=== PATIENT | female | born 1955 | race African-American/Black ===

== ENCOUNTER → 2017-10-21 | Outpatient (CLI) | payer OTHER, MEDICARE ==
[~2017-10-21] MED LIST: ALLOPURINOL 10100 M1 PO; ASPIR 8181 M1 PO; ASPIRIN325; ATORVASTATIN CA40 MG PO; AUGMENTIN 875875 MG PO; BRILINTA90 MG PO; CARISOPRODOL 3350 MG; CARISOPRODOL 3350 MG PO; COLCHICINE0.6 MG PO; COREG3.125 MG PO; DELSYM30 MG/5 M1 PO; FLEXERIL PO; HYDROCHLOROTHIA25 M2 PO; HYDROCODONE-AP1 EAC6 PO; IMDUR 30 MG TAB30 M1; IMDUR 30 MG TAB30 M1 PO; INDOCIN25 MG/5 ML PO; KLOR-CON 1010 MEQ PO; LEVOTHYROXIN0.125 M1 PO; LIDODERM 5%1 PATC1 TRANSDERM; LISINOPRIL2.5 MG PO; LISINOPRIL40 MG; LISINOPRIL40 MG PO; LOPRESSOR25 PO; LORTAB; LOVASTAT20; MEDROL4 MG PO; NEURONTIN 300300 M1 PO; NITROSTAT0.4 MG SUBLING; NORCO 5-325 TA1 EAC1 PO; NORCO 5-325 TA1 EACH PO; NORVASC5 MG PO; ONDANSETRON HCL4 M2 PO; OXYCODONE HCL15 MG PO; OXYCONTIN10 M1; OXYCONTIN10 M1 PO; PERCOCET 5-3251 EACH PO; PERCOCET 7.5-31 EACH PO; PERCOCET PO; PLAVIX 75 MG TA75 M1 PO; PLAVIX 75 MG TA75 MG; PLAVIX 75 MG TA75 MG PO; PROMETHAZINE D480 ML PO; PROTONIX40 M1 PO; PROTONIX40 M2 PO; PROTONIX40 M4 PO; RANEXA 500 MG500 M1; ROBAXIN 750 MG750 M1 PO; ROBAXIN500 MG PO; ROXICODONE30 MG PO; SYNTHROID25 MCG; TESSALON PERLE100 MG PO; TOPROL XL25 MG; TOPROL XL25 MG PO; TRAMADOL 50 MG50 MG PO; ZOLOFT100 MG PO; ZPAK PO
== END ==
LOC: M.RAD 15:32
DX: M81.0 Age-related osteoporosis without current pathological fracture (principal); M48.52XA Collapsed vertebra, not elsewhere classified, cervical region, initial encounter for fracture; M85.88 Other specified disorders of bone density and structure, other site; Z78.0 Asymptomatic menopausal state

== ENCOUNTER → 2017-11-01 | Outpatient (CLI) | payer OTHER, MEDICARE | LOC: M.MRI 13:20 | DX: M50.21 Other cervical disc displacement, high cervical region (principal); R60.0 Localized edema; M50.221 Other cervical disc displacement at C4-C5 level; M25.78 Osteophyte, vertebrae; M50.223 Other cervical disc displacement at C6-C7 level; G95.29 Other cord compression; V89.2XXA Person injured in unspecified motor-vehicle accident, traffic, initial encounter; Y93.89 Activity, other specified; Y92.89 Other specified places as the place of occurrence of the external cause; Y99.8 Other external cause status ==

== ENCOUNTER 2018-08-09 16:26 | Emergency (ER) | payer MEDICARE ==
[~2018-08-09] VITALS: Ht 160 cm; Wt 71.2 kg
[~2018-08-09 16:26] MED LIST changes: -PERCOCET 7.5-31 EACH PO
[2018-08-09] MEDS ORDERED: PLAVIX 75 MG TA75 M1 PO (16:48)
[2018-08-09] MEDS ORDERED: PERCOCET 7.5-31 EACH PO (17:38)
[2018-08-09 17:48] VITALS: BP 111/70
== END 2018-08-09 17:49 | disposition home or self-care (01) ==
LOC: M.ERS 16:26
DX: M25.561 Pain in right knee (principal); I10 Essential (primary) hypertension; I25.2 Old myocardial infarction; G89.29 Other chronic pain; K21.9 Gastro-esophageal reflux disease without esophagitis; Z95.5 Presence of coronary angioplasty implant and graft; Z90.49 Acquired absence of other specified parts of digestive tract; Z88.5 Allergy status to narcotic agent; Z87.891 Personal history of nicotine dependence

== ENCOUNTER → 2018-12-17 | Outpatient (CLI) | payer OTHER, MEDICAID ==
[~2018-12-17] MED LIST changes: +PERCOCET 7.5-31 EACH PO
[2018-12-17 14:04] LABS: CREATININE 1.2 mg/dL (0.6-1.3)
--- NOTE | 2018-12-17 16:20 | NUR ---
Patient came in for consult, however after doing labwork for CT scan, infusion department was unable to place an IV for the patient's CTA. Dr. Mederos rescheduled the patient for next weds and did not consult with the patient . Only procedures performed today was lab work.
== END ==
LOC: M.CT 12-11 08:48 → M.LAB 12:30 → M.CT 13:30
PROVIDERS: Internal Medicine Cardiovascular Disease
DX: Z01.812 Encounter for preprocedural laboratory examination (principal); I73.9 Peripheral vascular disease, unspecified